=== PATIENT | female | born 1980 | race Caucasian/White ===

== ENCOUNTER 2016-04-18 10:09 | Inpatient (IN) | payer MEDICAID ==
[~2016-04-18] VITALS: Ht 157.5 cm; Wt 95.3 kg
[2016-04-18] VITALS (13 sets, daily range): BP systolic 102–123; RESP 16–20; TEMP 97.4–98.2; Ht 157.5 cm; Wt 95.3 kg
[~2016-04-18 10:09] MED LIST: FENTANYL 100 MCG/2 ML AMP IV ONE; MIDAZOLAM 2 MG/2 ML INJ IV ONE; MORPHINE PF 0.5 MG/ML 10 ML IV ONE; OXYTOCIN 10 UNITS/ML VIAL IV ONE; PHENYLEPHRINE 10 MG/ML VIAL IV ONE
[2016-04-18] MEDS: LACT RINGERS 1,000 ML IV SCH ×2 (10:25→11:40)
[2016-04-18] MEDS ORDERED: CEFAZOLIN (LD/OB) 100 ML IV ONE (11:20)
[2016-04-18] MEDS ORDERED: METOCLOPRAMIDE 10 MG/2 ML VIAL IV PUSH ONE ×2 (11:20→11:25)
[2016-04-18] MEDS ORDERED: FAMOTIDINE 20 MG INJ IV ONE ×2 (11:20→11:25)
[2016-04-18] MEDS ORDERED: LIDOCAINE 1% BUFFERED 1 ML SYR INTRADERM PRN (11:25)
[2016-04-18] MEDS ORDERED: LACT RINGERS 1,000 ML IV SCH ×2 (11:25→12:45)
[2016-04-18] MEDS ORDERED: DILAUDID 1 MG/ML AMP IV PRN (12:10)
[2016-04-18] MEDS ORDERED: MORPHINE 4 MG/ML SYR IV PRN ×2 (12:10)
[2016-04-18] MEDS ORDERED: OXYCODONE 5 MG TAB PO PRN (12:10)
[2016-04-18] MEDS ORDERED: ONDANSETRON 4 MG VIAL IV PRN ×3 (12:10→12:45)
[2016-04-18] MEDS ORDERED: SALINE FLUSH 10 ML FLUSH PRN (12:10)
[2016-04-18] MEDS ORDERED: MEPERIDINE 25 MG/ML IV PRN (12:10)
[2016-04-18] MEDS ORDERED: PROMETHAZINE 25 MG/ML VIAL IV PRN (12:10)
[2016-04-18] MEDS ORDERED: NALOXONE 0.4 MG/ML AMP IV PRN (12:10)
[2016-04-18] MEDS ORDERED: MORPHINE 2 MG/ML SYR IV PRN ×2 (12:10)
[2016-04-18] MEDS ORDERED: DIPHENHYDRAMINE 50 MG/ML VIAL IV PRN (12:10)
[2016-04-18] MEDS ORDERED: BUTORPHANOL 1 MG/ML VIAL IV PRN (12:10)
[2016-04-18] MEDS ORDERED: MEASLES,MUMPS,RUBELLA VAC SUBQ.VACC ONE (12:45)
[2016-04-18] MEDS ORDERED: OXYTOCIN 15 UNITS/250 ML NS 250 ML IV SCH (12:45)
[2016-04-18] MEDS ORDERED: TDaP 0.5 ML VIAL IM.VACC ONE (12:45)
[2016-04-18] MEDS ORDERED: MAG HYDROX 30 ML UDC PO PRN (12:45)
[2016-04-18] MEDS: KETOROLAC 30 MG/ML VIAL IV SCH (17:14)
[2016-04-18] MEDS: SALINE FLUSH 10 ML FLUSH SCH (20:00)
[2016-04-18] MEDS: SODIUM CHLORIDE 0.9% FLUSH BAG 500 ML IV SCH (23:49)
[2016-04-19] VITALS (8 sets, daily range): BP systolic 102–125; RESP 16–20; TEMP 97.5–98.1
[2016-04-19] MEDS: KETOROLAC 30 MG/ML VIAL IV SCH ×3 (00:18→12:00)
[2016-04-19] MEDS: DOCUSATE SOD 100 MG CAP PO SCH (09:57)
[2016-04-19] MEDS: SALINE FLUSH 10 ML FLUSH SCH ×2 (12:00→20:00)
[2016-04-19] MEDS: Ibuprofen 800 MG TAB PO SCH (16:16)
[2016-04-19] MEDS: OXYCODONE/APAP 5/325 TAB PO PRN (19:24)
[2016-04-20] MEDS: Ibuprofen 800 MG TAB PO SCH ×2 (00:05→08:41)
[2016-04-20] MEDS: OXYCODONE/APAP 5/325 TAB PO PRN ×2 (03:10→08:41)
[2016-04-20] MEDS: SODIUM CHLORIDE 0.9% FLUSH BAG 500 ML IV SCH (06:00)
[2016-04-20 06:30] VITALS: BP_SYST 128; RESP 20; TEMP 97.5
[2016-04-20] MEDS ORDERED: TDaP 0.5 ML VIAL IM.VACC ONE (08:40)
[2016-04-20] MEDS: DOCUSATE SOD 100 MG CAP PO SCH (08:41)
[2016-04-20 09:26] VITALS: BP_SYST 128; RESP 20; TEMP 97.5
== END 2016-04-20 13:45 | disposition home or self-care (01) | DRG 766 ==
LOC: LD 10:09 → OB 14:44
PROVIDERS: ADMIT Obstetrics & Gynecology; ATTEND Obstetrics & Gynecology
PROC: 10D00Z1 Extraction of Products of Conception, Low, Open Approach (ICD-10-PCS; principal; 2016-04-18)
DX: O34.219 Maternal care for unspecified type scar from previous cesarean delivery (principal); Z37.0 Single live birth; Z3A.39 39 weeks gestation of pregnancy
CPT/HCPCS: 85025; 96372